=== PATIENT | male | born 1960 | race Caucasian/White ===

== ENCOUNTER 2017-01-27 09:50 | Inpatient (IN) | payer OTHER ==
[~2017-01-27] VITALS: Ht 177.8 cm; Wt 163.6 kg
[2017-01-27] MEDS ORDERED: SODIUM CHLORIDE FLUSH 10ML SYR IVF ONE (11:00)
[2017-01-27 11:26] LABS: HEMOGLOBIN 14.2 g/dL (13.7-18.0)
[2017-01-27 11:39] LABS: BLOOD UREA NITROGEN 16 mg/dL (7-18)
[2017-01-27 11:45] LABS: ASPARTATE AMINO TRANSFERASE 29 U/L (15-37)
[2017-01-27 11:47] LABS: IS PT STATUS REG ER OR PRE ER? YES
[2017-01-27] MEDS ORDERED: OMNIPAQUE 350 MG/ML, 150 ML BOTTLE ONE (12:18)
[2017-01-27] MEDS ORDERED: HEPARIN 5,000 UNITS/ML, 1ML ONE (12:52)
[2017-01-27] MEDS ORDERED: HEPARIN 25,000 UNITS/500ML PMX 500 ML ONE (12:52)
[2017-01-27] MEDS ORDERED: SODIUM CHLORIDE FLUSH 10ML SYR IVF PRN (13:00)
[2017-01-27] MEDS ORDERED: HEPARIN 5,000 UNITS/ML, 1ML IV ONE (13:00)
[2017-01-27] MEDS: HEPARIN 25,000 UNITS/500ML PMX 500 ML IV PRN (13:26)
[2017-01-27] MEDS ORDERED: BISACODYL 10 MG SUPP PR PRN (13:30)
[2017-01-27] MEDS ORDERED: ENALAPRILAT 1.25 MG/ML, 2ML IVPush PRN (13:30)
[2017-01-27] MEDS ORDERED: ACETAMINOPHEN 325 MG TABLET PO PRN (13:30)
[2017-01-27] MEDS ORDERED: POLYETHYLENE GLYCOL 17 GM PACKET PO PRN (13:30)
[2017-01-27] MEDS ORDERED: FUROSEMIDE 20 MG/2 ML IV ONE (13:30)
[2017-01-27] MEDS ORDERED: OXYcodone IR 5MG TABLET PO PRN (13:30)
[2017-01-27] MEDS ORDERED: MORPHINE SULFATE 4 MG/ML, 1ML IVPush PRN (13:30)
[2017-01-27] MEDS ORDERED: ONDANSETRON 2MG/ML, 2ML IVP PRN (13:30)
[2017-01-27 15:09] LABS: PATH.CAST-FLAG NOT PRESENT; SPERM-FLAG NOT PRESENT; SRC-FLAG NOT PRESENT; XTAL-FLAG NOT PRESENT; YLC-FLAG NOT PRESENT
[2017-01-27 16:00] VITALS: BP 146/92
[2017-01-27] MEDS: INSULIN ASPART 100 UNITS/ML, PEN SQ-INSULIN SCH ×2 (16:00→21:00)
[2017-01-27] MEDS: NICOTINE 21 MG/24 HR PATCH.TD24 TD SCH (17:18)
[2017-01-27 20:15] VITALS: BP 129/83
[2017-01-27] MEDS: LOSARTAN 25MG TABLET PO SCH (20:23)
[2017-01-27] MEDS: HEPARIN 5,000 UNITS/ML, 1ML IV PRN (20:24)
[2017-01-28 02:52] VITALS: BP 139/81
[2017-01-28 03:04] LABS: ASPARTATE AMINO TRANSFERASE 43 U/L (15-37); BLOOD UREA NITROGEN 18 mg/dL (7-18)
[2017-01-28 03:34] LABS: HEMOGLOBIN 14.4 g/dL (13.7-18.0)
[2017-01-28 03:35] LABS: DIFF TOTAL CELLS COUNTED 100 CELL DIFF
[2017-01-28 03:37] LABS: ANISOCYTOSIS 1+; LARGE PLATELETS 1+; MONOS WITH VACUOLES 1+; POLYCHROMASIA 1+; VERIFY COUNTS? YES
[2017-01-28] MEDS: HEPARIN 25,000 UNITS/500ML PMX 500 ML IV PRN ×2 (03:44→17:46)
[2017-01-28] MEDS: HEPARIN 5,000 UNITS/ML, 1ML IV PRN ×3 (03:45→21:35)
[2017-01-28] MEDS: INSULIN ASPART 100 UNITS/ML, PEN SQ-INSULIN SCH ×4 (07:00→20:12)
[2017-01-28 07:35] VITALS: BP 147/84
[2017-01-28] MEDS: SENNA/DOCUSATE TABLET PO SCH (08:16)
[2017-01-28] MEDS: LOSARTAN 25MG TABLET PO SCH ×2 (08:16→20:12)
[2017-01-28 12:02] LABS: IS PT STATUS REG ER OR PRE ER? NO
[2017-01-28 13:25] VITALS: BP 122/72
[2017-01-28] MEDS: NICOTINE 21 MG/24 HR PATCH.TD24 TD SCH (13:57)
[2017-01-28 19:18] VITALS: BP 171/79
[2017-01-29 02:02] VITALS: BP 121/76
[2017-01-29 03:57] LABS: HEMOGLOBIN 13.1 g/dL (13.7-18.0)
[2017-01-29] MEDS: HEPARIN 5,000 UNITS/ML, 1ML IV PRN (04:44)
[2017-01-29] MEDS: INSULIN ASPART 100 UNITS/ML, PEN SQ-INSULIN SCH ×2 (07:00→11:00)
[2017-01-29 07:27] VITALS: BP 141/77
[2017-01-29] MEDS: SENNA/DOCUSATE TABLET PO SCH (08:24)
[2017-01-29] MEDS: LOSARTAN 25MG TABLET PO SCH (08:24)
[2017-01-29] MEDS ORDERED: RIVAROXABAN 15 MG TABLET PO SCH ×2 (11:35→17:00)
[2017-01-29] MEDS ORDERED: RIVA15TA PO (11:41)
[2017-01-29] MEDS ORDERED: LOSA25TA5 PO (15:35)
[2017-01-29] MEDS ORDERED: FLU VACC QS2016-17 (36MOS+)UP/PF 0.5 ML IM-VACC ONE (16:00)
[2017-01-29] MEDS ORDERED: PNEUMOCOCCAL 23 VACCINE IM-VACC ONE (16:00)
== END 2017-01-29 15:53 | disposition home or self-care (01) | DRG 175 ==
LOC: ED 10:50 → EDIP 12:51 → 5SO 14:02 → DCLOUNGE 01-29 15:35
PROVIDERS: ADMIT Internal Medicine; ATTEND Internal Medicine
PROC: 0T9B70Z Drainage of Bladder with Drainage Device, Via Natural or Artificial Opening (ICD-10-PCS; principal; 2017-01-27)
DX: I26.09 Other pulmonary embolism with acute cor pulmonale (principal); J96.21 Acute and chronic respiratory failure with hypoxia; D68.69 Other thrombophilia; Z68.43 Body mass index [BMI] 50.0-59.9, adult; E11.9 Type 2 diabetes mellitus without complications; I27.2 Other secondary pulmonary hypertension; E66.01 Morbid (severe) obesity due to excess calories; I11.0 Hypertensive heart disease with heart failure; I50.9 Heart failure, unspecified; R74.8 Abnormal levels of other serum enzymes; F43.9 Reaction to severe stress, unspecified; D72.829 Elevated white blood cell count, unspecified; Z99.81 Dependence on supplemental oxygen; F17.200 Nicotine dependence, unspecified, uncomplicated
CPT/HCPCS: 36415; 71010; 71275; 80053; 80061; 81001; 82962; 83036; 83735; 83880; 84439; 84443; 84484; 85025; 85520; 85610; 85730; 87040; 93005; 93306; 93970; 96374; J1644; Q9967; J1940

== ENCOUNTER → 2017-02-07 | Outpatient (CLI) | payer OTHER ==
[~2017-02-07] MED LIST: LOSA25TA5 PO; RIVA15TA PO
== END | disposition home or self-care (01) ==
LOC: RAD 08:52
PROVIDERS: ATTEND Family Medicine
DX: J90 Pleural effusion, not elsewhere classified (principal); J98.4 Other disorders of lung; Z86.711 Personal history of pulmonary embolism
CPT/HCPCS: 71020